=== PATIENT | female | born 1995 | race Caucasian/White ===

== ENCOUNTER 2025-08-08 23:06 | Day surgery (SDC) | payer OTHER ==
[2025-08-08] MEDS ORDERED: hydrALAZINE 20 MG/ML VIAL SLOW IVP PRN (23:57)
[2025-08-09 00:15] LABS: Glucose, Urine (Dipstick) Normal (Negative); Leukocyte Negative (Negative); Protein, Urine (Dipstick) Negative (Neg-Trace); Specific Gravity, Urine 1.015 (1.005-1.030)
[2025-08-09 00:24] LABS: Bacteria/HPF None Seen HPF (None Seen); CAUTI Indications for Culture Pregnancy; RBC/HPF None Seen HPF (0-3); WBC/HPF 0-3 HPF (0-3)
[2025-08-09 00:25] LABS: Urine Culture Reflex Yes Yes
[2025-08-09 00:52] VITALS: BMI 31.8
[2025-08-09] MEDS: Acetaminophen 500 MG TAB PO SCH (01:56)
[2025-08-09] MEDS: Cyclobenzaprine 10 MG TAB PO SCH (03:50)
== END 2025-08-09 05:27 | disposition home or self-care (01) ==
LOC: CSHLD/OP 23:06 → EEVIPCON 23:06 → CSHLD/OP 08-09 05:27
PROVIDERS: ATTEND Obstetrics & Gynecology
DX: O47.03 False labor before 37 completed weeks of gestation, third trimester (principal); O34.211 Maternal care for low transverse scar from previous cesarean delivery; O26.643 Intrahepatic cholestasis of pregnancy, third trimester; Z3A.36 36 weeks gestation of pregnancy; Z87.59 Personal history of other complications of pregnancy, childbirth and the puerperium; Z90.89 Acquired absence of other organs; Z88.2 Allergy status to sulfonamides; Z79.899 Other long term (current) drug therapy
CPT/HCPCS: 81001; 87086; 87480; 87510; 87660; 96360; 99285